=== PATIENT | male | born 1955 | race African-American/Black ===

== ENCOUNTER 2018-11-30 16:02 | Inpatient (IN) | payer OTHER, SELFPAY ==
[~2018-11-30 16:02] MED LIST: Dexamethasone 20 MG/5 ML VIAL ONE; Glycopyrrolate 0.2 MG/ML 5 ML SYRINGE ONE; Lidocaine 1% PF 5 ML VIAL ONE; Ondansetron PF 4 MG/2 ML Vial ONE; PROPOFOL 200 MG/20 ML VIAL ONE; Rocuronium Bromide 10 MG/ML (10ML VIAL) ONE; Succinylcholine Chloride 20 MG/ML 10 ml SYRINGE FS ONE
[2018-11-30] MEDS ORDERED: Morphine 4 MG/ML VIAL ONE (16:05)
[2018-11-30] MEDS ORDERED: CEFAZOLIN 1 GM VIAL ONE (16:06)
[2018-11-30] MEDS ORDERED: Adacel (T-DAP) 0.5 ML SYRINGE ONE (16:06)
[2018-11-30] MEDS ORDERED: Ondansetron PF 4 MG/2 ML Vial ONE (16:06)
[2018-11-30 16:20] LABS: #Basophils 0.1 thou/uL (0.0-0.2); #Eosinphils 0.1 thou/uL (0.0-0.7); #Lymphocytes 2.3 thou/uL (1.20-3.40); #Monocytes 0.5 thou/uL (0.11-0.59); #Neutrophils 2.8 thou/uL (1.40-6.50); %Basophils 1.4 % (0.0-1.0); %Eosinophils 1.1 % (0.0-10.0); %Lymphocytes 39.9 % (21.0-51.0); %Monocytes 7.8 % (0.0-10.0); %Neutrophils 49.7 % (42.0-75.0); Hemoglobin 13.8 g/dL (14.0-18.0); Mean Corpuscular Hemoglobin 33.1 pg (27.0-31.0); Mean Corpuscular Volume 97.2 fL (78.0-98.0); Mean Platelet Volume 7.4 fL (7.4-10.4); Platelet Count 207 thou/uL (130-400); RBC Distribution Width 12.8 % (11.5-14.5); Red Blood Cell (RBC) Count 4.17 mill/uL (4.70-6.10); White Blood Cell (WBC) Count 5.7 thou/uL (4.8-10.8)
[2018-11-30 16:28] LABS: PTT 24.2 SEC (22.9-36.1); Prothrombin Time 13.6 SEC (12.0-14.7)
[2018-11-30 16:42] LABS: ALT (SGPT) 13 U/L (8-55); AST (SGOT) 22 U/L (5-34); Albumin 4.1 g/dL (3.4-4.8); Alkaline Phosphatase 70 U/L (40-150); Anion Gap 12 mmol/L (10-20); BUN (Urea Nitrogen) 17 mg/dL (8.4-25.7); Bilirubin, Total 0.4 mg/dL (0.2-1.2); Calc. Creatinine Clearance 0 mL/min (70-130); Calcium 9.3 mg/dL (7.8-10.44); Carbon Dioxide 23 mmol/L (23-31); Chloride 112 mmol/L (98-107); Estimated GFR-MDRD 68; Glucose 111 mg/dL (80-115); Protein, Total 7.1 g/dL (5.8-8.1); Sodium 143 mmol/L (136-145)
--- NOTE | 2018-11-30 16:45 | RAD ---
XR Chest 1 View Portable History: [Chest pain. Trauma.] Comparison: None. Findings: Lungs are clear. A subtle radiopacity projects over the left 12th rib head, although medita tions into the patient. No pneumothorax. No effusion. Cardiac silhouette and mediastinal contours are within normal limits. IMPRESSION: Subtle 5 mm radiopacity projecting along the left 12th rib head may be extrinsic to the p atient.
--- NOTE | 2018-11-30 16:46 | RAD ---
EXAM: Left femur: AP and lateral views for total 4 images INDICATIONS: Trauma COMPARISON: None. FINDINGS: No fracture. No osseous abnormality. Mild degenerative change at the hip noted. IMPRESSION: No acute finding
[2018-11-30] MEDS ORDERED: Ketorolac Tromethamine 30 MG/ML VIAL ONE (16:56)
--- NOTE | 2018-11-30 17:04 | RAD ---
LEFT TIBIA AND FIBULA TWO VIEW SERIES: 11/30/18 INDICATION: Posttraumatic injury, pain. FINDINGS: There is transversely oriented displaced mid diaphyseal fracture of the tibia with approximately one half shaft width lateral and anterior displacement of major distal fracture fragments. There is a com minuted, angulated, and mildly displaced proximal fibular diaphyseal fracture. Overlying soft tissue irregularity is present. Region of the ankle is not reliably assessed on the basis of this exam. IMPRESSION: Acute tibial and fibular fractures as above. Orthopedic consultation is recommended. POS: George
[2018-11-30] MEDS ORDERED: Fentanyl 100 MCG/2 ML VIAL ONE ×4 (17:12→21:00)
[2018-11-30] MEDS ORDERED: Neomycin-Polymyxin 1 ML AMP ONE (17:13)
[2018-11-30] MEDS ORDERED: Morphine 2 MG/ML SYRINGE SLOW IVP PRN (17:33)
[2018-11-30] MEDS ORDERED: Dextrose 5% in Water 1,000 ML IV PRN (17:33)
[2018-11-30] MEDS ORDERED: Lorazepam 2 MG/ML VIAL SLOW IVP PRN (17:33)
[2018-11-30] MEDS ORDERED: Dextrose 50% Abboject 50 ML SYRINGE SLOW IVP PRN (17:33)
[2018-11-30] MEDS ORDERED: Ondansetron ODT 4 MG TAB PO PRN (17:33)
[2018-11-30] MEDS ORDERED: Ondansetron PF 4 MG/2 ML Vial IVP PRN (17:33)
[2018-11-30] MEDS ORDERED: hydrALAZINE 20 MG/ML VIAL SLOW IVP PRN (17:33)
[2018-11-30] MEDS ORDERED: Morphine 4 MG/ML VIAL SLOW IVP PRN (17:33)
[2018-11-30] MEDS ORDERED: Midazolam HCl 2 mg/2 ml Vial ONE (17:51)
[2018-11-30 18:17] LABS: Magnesium 2.2 mg/dL (1.6-2.6); Phosphorus 3.7 mg/dL (2.3-4.7)
--- NOTE | 2018-11-30 19:11 | PDOC.EVN ---
Event Note - Event Note Event Note: Patient seen and examined in OR. Undergoing ORIF Tibia fx. No other traumatic injuries. There is puncture wound to thigh without vascular compromise. See [facility] for full details.
[2018-11-30] MEDS ORDERED: Promethazine HCl 25 MG/ML VIAL IM PRN (20:07)
[2018-11-30] MEDS ORDERED: Promethazine HCl 25 MG/ML VIAL SLOW IVP PRN (20:07)
[2018-11-30] MEDS ORDERED: Ondansetron HCl/PF 4 MG/2 ML Vial IVP PRN (20:07)
[2018-11-30] MEDS ORDERED: HYDROmorphone 2 MG/ML VIAL SLOW IVP PRN (20:07)
--- NOTE | 2018-11-30 21:13 | RAD ---
Exam: XR Tib Fib Lt Leg 2 View HISTORY: ORIF left tib-fib COMPARISON: 11/30/2018 at 1612 hours. FINDINGS/IMPRESSION: 6 intraoperative fluoroscopic images left tibia and fibula are submitted. Postsurgical changes relate d to placement of an antegrade intramedullary love with proximal and distal interlocking screws are now present transfixing the previously noted fracture involving the mid diaphysis of the tibia. Obliq ue fracture of the proximal fibula is again seen. Correlation with intraoperative findings is recommended. Fluoroscopy: Total fluoroscopy time is 61.2 seconds with total dose of 1.46 mg.
[2018-11-30 22:54] VITALS: BMI 28.8
[2018-11-30] MEDS: Acetaminophen 1,000 MG in Premix Bag 1 BAG IVPB SCH (23:16)
[2018-11-30] MEDS: traMADol HCl 50 MG TAB PO SCH (23:16)
[2018-11-30] MEDS: Famotidine/PF 20 mg/2ml Vial SLOW IVP SCH (23:17)
[2018-11-30] MEDS: Ibuprofen 600 MG TAB PO SCH (23:17)
[2018-11-30] MEDS: Senokot S 8.6-50 MG TAB PO SCH (23:17)
[2018-11-30] MEDS: Sodium Chloride 0.9% 1,000 ML IV SCH (23:26)
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
[2018-12-01] MEDS: Acetaminophen 1,000 MG in Premix Bag 1 BAG IVPB SCH (00:25)
[2018-12-01] MEDS: traMADol HCl 50 MG TAB PO SCH ×5 (00:25→20:57)
[2018-12-01] MEDS: CEFAZOLIN 2 GM in Premix Bag 1 BAG IVPB SCH ×4 (00:36→23:23)
[2018-12-01 04:38] LABS: #Lymphocytes 0.9 thou/uL (1.20-3.40); #Monocytes 0.4 thou/uL (0.11-0.59); #Neutrophils 5.1 thou/uL (1.40-6.50); %Eosinophils 0.1 % (0.0-10.0); %Lymphocytes 14.5 % (21.0-51.0); %Neutrophils 79.5 % (42.0-75.0); Hemoglobin 11.3 g/dL (14.0-18.0); Mean Corpuscular HGB CONC 32.7 g/dL (32.0-36.0); Mean Corpuscular Hemoglobin 32.8 pg (27.0-31.0); Mean Platelet Volume 7.7 fL (7.4-10.4); Platelet Count 185 thou/uL (130-400); RBC Distribution Width 12.8 % (11.5-14.5); Red Blood Cell (RBC) Count 3.44 mill/uL (4.70-6.10); White Blood Cell (WBC) Count 6.4 thou/uL (4.8-10.8)
[2018-12-01] MEDS: Sodium Chloride 0.9% 1,000 ML IV SCH ×2 (05:45→10:50)
[2018-12-01] MEDS: Ibuprofen 600 MG TAB PO SCH ×3 (06:38→16:24)
[2018-12-01] MEDS: traMADol HCl 50 MG TAB PO PRN ×2 (08:05→14:37)
[2018-12-01] MEDS: Polyethylene Glycol 3350 17 GM Packet PO SCH (08:06)
[2018-12-01] MEDS: Senokot S 8.6-50 MG TAB PO SCH ×2 (08:06→20:58)
[2018-12-01] MEDS: Famotidine/PF 20 mg/2ml Vial SLOW IVP SCH (08:06)
[2018-12-01] MEDS ORDERED: Acetaminophen 500 MG TAB PO SCH (12:30)
[2018-12-01] MEDS: Acetaminophen 500 MG TAB PO SCH ×2 (18:04→23:26)
[2018-12-01] MEDS ORDERED: Melatonin 3 MG TAB PO PRN (18:38)
[2018-12-01] MEDS: Aspirin 81 mg Enteric Coated Tablet PO SCH (20:58)
[2018-12-02] MEDS: Ibuprofen 600 MG TAB PO SCH ×2 (01:28→08:51)
[2018-12-02] MEDS: traMADol HCl 50 MG TAB PO SCH ×2 (01:30→08:52)
[2018-12-02] MEDS: Acetaminophen 500 MG TAB PO SCH ×2 (06:12→12:44)
[2018-12-02 08:31] VITALS: BP 124/66; TEMP 98.4
[2018-12-02] MEDS: CEFAZOLIN 2 GM in Premix Bag 1 BAG IVPB SCH (08:50)
[2018-12-02] MEDS: Senokot S 8.6-50 MG TAB PO SCH (08:53)
[2018-12-02] MEDS: Polyethylene Glycol 3350 17 GM Packet PO SCH (08:53)
[2018-12-02] MEDS: Aspirin 81 mg Enteric Coated Tablet PO SCH (08:53)
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
== END 2018-12-02 12:20 | disposition home or self-care (01) | DRG 492 ==
LOC: ERS 16:02 → SURG B 17:00 → SDC 17:08 → SURG B 21:05
PROVIDERS: ADMIT Surgery; ATTEND Surgery
PROC: 0QSH06Z Reposition Left Tibia with Intramedullary Internal Fixation Device, Open Approach (ICD-10-PCS; principal; 2018-11-30)
PROC: 0HQJXZZ Repair Left Upper Leg Skin, External Approach (ICD-10-PCS; 2018-11-30)
DX: S82.392B Other fracture of lower end of left tibia, initial encounter for open fracture type I or II (principal); S82.832B Other fracture of upper and lower end of left fibula, initial encounter for open fracture type I or II; G89.11 Acute pain due to trauma; S71.112A Laceration without foreign body, left thigh, initial encounter; F17.290 Nicotine dependence, other tobacco product, uncomplicated; W20.8XXA Other cause of strike by thrown, projected or falling object, initial encounter
CPT/HCPCS: 36415; 36416; 71045; 76000; 80053; 83605; 83735; 84100; 85025; 85610; 85730; 86900; 86901; 90715; C1713; C1769; G0390; J0131; J0690; J1885; J2250; J2270; J2405; J3010; S0028